=== PATIENT | female | born 1955 | race Caucasian/White ===

== ENCOUNTER 2024-11-06 11:57 | Emergency (ER) | payer OTHER, SELFPAY ==
[2024-11-06 11:59] VITALS: BP 168/81
[2024-11-06 12:08] VITALS: BP 148/73
[2024-11-06 13:00] VITALS: BP 128/65
[2024-11-06] MEDS: NSS 1000 IV (13:22)
[2024-11-06 13:24] LABS: % Basophils 0.5 % (0-2); % Eosinophils 2.1 % (0-6); % Immature Granulocytes 0.3 % (0-0.5); % Lymphocytes 19.5 % (20.5-51.1); % Monocytes 7.6 % (1.7-9.3); Absolute Eosinophils 0.2 10^3/uL (0-0.7); Absolute Lymphocytes 1.5 10^3/uL (1.2-3.4); Absolute Monocytes 0.6 10^3/uL (0.1-0.6); Absolute Neutrophils 5.3 10^3/uL (1.4-6.5); Hematocrit 42.7 % (37.0-47.0); Hemoglobin 14.5 g/dL (12.0-16.0); Mean Corpuscular Hgb 31.2 pg (27.0-31.0); Mean Corpuscular Volume 91.8 fL (81.0-99.0); Mean Platelet Volume 9.3 fL (7.4-10.4); Nucleated Red Blood Cells % 0 %; Platelet Count 284 10^3/uL (130-400); Red Blood Cell Count 4.65 10^6/uL (4.20-5.40); Red Cell Dist. Width 13.2 % (11.5-14.5); White Blood Cell Count 7.6 10^3/uL (4.8-10.8)
--- NOTE | 2024-11-06 13:30 | ED.GENMED ---
History of Present Illness
General
Chief Complaint: Dizziness
Source: patient and spouse
Exam Limitations: none
Time Seen by Provider: 11/06/24 12:40
History of Present Illness
History of Present Illness:
69-year-old female complaining of panic attacks. 2 months ago her story started while [place] when she felt lightheaded and describing more of a near syncopal episode. Since then she admits that she has been severely anxious and nervous over
that episode to a debilitating point of not feeling safe driving. Worried about going into shopping centers. She wakes up worrying about this issue. However today she had a vertiginous episode at home. It has resolved. She denies headache
visual issues double issues numbness tingling weakness syncope chest pain or other complaints
Past History
Past History
ED Past Medical History: Hypothyroidism
ED Past Surgical History: Cholecystectomy (In 2013)
Social History
Tobacco: Non-smoker
Alcohol: None
Drug: None
Personal:
Living: with family
Family History
Family History: Other (Noncontributory)
Review of Systems
Review of Systems
All Other Systems: Not applicable
Constitutional: Denies fever or chills
Respiratory: Denies trouble breathing
Cardiac: Denies chest pain or palpitations
ABD/GI: Reports no symptoms
Phy Exam
Physical Exam
Physical Exam:
GENERAL: Alert and oriented in no apparent distress
EYE: Orbits normal.
NECK: Supple, no thyroid palpable.
ENT: Pharynx without erythema
CARDIAC: Regular rate and rhythm without any obvious murmurs.
LUNGS: Clear breath sounds,normal
ABDOMEN: Soft, without focal tenderness or distention
NEUROLOGICAL: Alert and oriented , grossly non-focal
SKIN: Warm and dry, no rash or lesion, no discoloration, skin intact.
MUSCULOSKELETAL: No edema,no deformity.Good color
PSYCH: Pleasant but very anxious. Crying slightly at times. Very nervous.
Course
Orders/Labs/Results
Orders:
Orders
11/06/24 12:53
CT Head W/o Iv Contrast Urgent
Comment:
Reason For Exam: Dizziness
IV Insert/Care/Rem.- Treatment PRN
0.9% Sodium Chloride 1000 ml [Nss] 1,000 ml IV BOLUS
11/06/24 12:54
Electrocardiogram (*1) Stat
Reason for Study: Other
Other Reason for Exam: neuro symptoms
EKG- Treatment ONCE
11/06/24 13:17
Basic Metabolic Panel Urgent
Complete Blood Count/With Diff Urgent
Free T4 Urgent
TSH Reflex To Free T4 Urgent
Troponin I Urgent
Abnormal Lab Results
11/06/24
13:17
MCH 31.2 H pg
(27.0-31.0)
Lymphocytes % 19.5 L %
(20.5-51.1)
BUN 22 H mg/dl
(7-17)
Glucose 122 H mg/dl
(70-99)
TSH (Reflex) 4.83 H uIU/ml
(0.47-4.68)
11/06/24 13:17
11/06/24 13:17
Vital Signs
Initial and Last Documented VS:
Initial Vital Signs
Temp Pulse Resp BP Pulse Ox
98.1 F 106 18 168/81 100
11/06/24 11:59 11/06/24 11:59 11/06/24 11:59 11/06/24 11:59 11/06/24 11:59
Last Documented Vital Signs
Temp Pulse Resp BP Pulse Ox
98.1 F 91 25 130/74 97
11/06/24 11:59 11/06/24 15:30 11/06/24 15:30 11/06/24 14:00 11/06/24 15:15
MDM/Problems Addressed
Differential Diagnosis Includes:
Patient is clearly very anxious and nervous which has been an ongoing issue related to her medical problems. However she is also describing a possible near syncopal episode 2 months ago with no further similar episodes and also describing a
vertiginous episode this morning. She is neurologically stable. She has no neck pain. She has no carotid bruit. [id number] are normal. Hrql-[id number] are normal. Speech is normal. Extraocular muscles are intact. Nothing to support an acute
neurologic issue. Workup for electrolyte abnormality thyroid abnormality screening CT scan. Also I did ask crisis to come give her resources for outpatient management of her anxiety.
*Pulse Oximetry
SaO2: 97
Oxygen Mode of Delivery: Room air
Patient hypoxic: no
*EKG
Interpreted by ED Provider?: Yes
Interpretation: normal
Comparison EKG: no changes
Heart Rate: 85
Rate: normal
Rhythm: sinus
[place]: left axis deviation
Interval: normal interval
QRS Pattern: normal QRS
Ischemia: no ischemia
*Reed Man Interpretation
Rate: normal
Interpretation: normal
Heart Rate: 84
Rhythm: sinus
*Critical Care Note
Total Time (30-74mins, 75-104mins- exclusive of procedures): Not Applicable
Data Reviewed
Review of Other/Old Records Reveals: Labs and Testing
Update Note
Update Note:
Patient medically stable and nontoxic. No serious etiology found. Discharged to follow-up
ED Attending Note
-
Portions of this chart may have been created with voice recognition software.� Occasional wrong word or��sound alike� substitutions may have occurred due to the inherent limitations of voice recognition software.
Discharge Plan
Departure
Patient Disposition: Home (Routine Discharge)
Date of Disposition: 11/06/24
Time of Disposition: 15:47
Patient with high blood pressure during this ER visit?: Yes
Discharge Problem:
Vertigo, Anxiety, Recent near syncope
Instructions: Vertigo (a Type of Dizziness) (DC), Near Fainting (DC), Anxiety in adults - ED discharge instructions, BLOOD PRESSURE
Prescriptions:
No Action
levothyroxine 25 MCG tablet
25 mcg PO DAILY
pantoprazole 40 MG tablet,delayed release (DR/EC)
40 mg PO DAILY Qty: 30 0RF
Rx Instructions:
Please take 30 minutes prior to breakfast in the morning
Referrals:
Abdullahi Leos MD [Active, Cardiology] - Next open appointment
NONE,* [Family Provider, Internal Medicine]
Activity Restrictions/Additional Instructions:
Also follow-up with crisis recommendations.
And also follow-up with your primary physician
Interventions
Interventions:
*Risk Screen - Suicide Last Done: 11/06/24 12:01
*General Assessment Last Done: 11/06/24 13:23
*Neglect/Abuse Screening Last Done: 11/06/24 13:23
*ED- Fall Risk Assessment Last Done: 11/06/24 13:23
*ED COVID-19 Vaccine History Last Done: 11/06/24 13:23
*Nursing Disposition Last Done: 11/06/24 16:03
ED- Neurological Assessment Last Done: 11/06/24 13:23
ED- Cardiac Assessment Last Done: 11/06/24 16:03
Discharge Date and Time
Discharge Date/Time: 11/06/24 16:02
Print Language: NEPALESE
[2024-11-06 13:42] LABS: Blood Urea Nitrogen 22 mg/dl (7-17); Calcium 9.7 mg/dl (8.4-10.2); Carbon Dioxide 26 mmol/L (22-30); Chloride 104 mmol/L (98-107); Glucose 122 mg/dl (70-99); Potassium 4.1 mmol/L (3.5-5.1); Sodium 140 mmol/L (135-145); eGFR > 60.00
[2024-11-06 14:00] VITALS: BP 130/74
[2024-11-06 14:01] LABS: Troponin I < 0.012 ng/ml
[2024-11-06 14:13] LABS: TSH Reflex To Free T4 4.83 uIU/ml (0.47-4.68)
[2024-11-06 14:42] LABS: Free T4 1.22 ng/dl (0.78-2.19)
== END 2024-11-06 16:02 | disposition home or self-care (01) ==
LOC: EMR 11:57
PROVIDERS: EMERGENCY PHYSICIAN Emergency Medicine
DX: R55 Syncope and collapse (principal); F41.9 Anxiety disorder, unspecified; R42 Dizziness and giddiness; E03.9 Hypothyroidism, unspecified
CPT/HCPCS: 99284; 70450; 80048; 84439; 84443; 84484; 85025; 93005